=== PATIENT | male | born 1980 | race Hispanic/Latino ===

== ENCOUNTER 2017-01-28 06:45 | Inpatient (IN) | payer OTHER ==
[2017-01-28] VITALS (9 sets, daily range): BP systolic 88–146; BP diastolic 47–84; PULSE 81–134; RESP 16–26; O2SAT 93–100
[~2017-01-28] VITALS: Ht 175.3 cm; Wt 135.9 kg
[~2017-01-28 06:45] MED LIST: AMOX500T2 PO; HYDR-4150 PO; HYDR-656 PO; METH750T3 PO; PRED50TA PO
[2017-01-28] MEDS ORDERED: 0.9% Sodium Chloride 1,000 ML IV ONE ×3 (07:05→08:50)
--- NOTE | 2017-01-28 07:05 | ED.REPORT ---
[facility] Illness Date of Service January 28, 2017 ED Provider: Donis Wilkinson MD The patient is a 36 year old male who presents to the ED due to an increasingly severe cough for the past 5 days. Associated symptoms include "rattling" in his chest, trouble breathing, inability to sleep, fatigue, malaise, shaking, diaphoresis, chills, and fever. Pt went to the doctor at the time of onset and was given antibiotics and an inhaler. The last dose of antibiotics was finished yesterday. He took 4 days off work but his symptoms have only gotten worse. Pt denies rash, hx of asthma, and has never experienced symptoms like this before. No one else in his family is ill. Nursing Notes Stated Complaint: COLD SYMPTOMS Chief Complaint: FLU/Cold Symptoms Nursing Notes Reviewed: Yes (App[employer], [employer] not reconciled) Allergies: Coded Allergies: No Known Allergies (Verified Allergy, Unknown, 04/14/15) Scheduled Amoxicillin (Amoxicillin) 500 Mg Tablet 1,000 MG PO Q12 Ipratropium [place] (Atrovent HFA) 200 Puff/12.9 Gm Inhaler 2 PUFF INH BID Prednisone (PredniSONE) 20 Mg Tablet 20 MG PO DAILY Scheduled PRN Benzonatate (Benzonatate) 200 Mg Capsule 200 MG PO PRN For Cough Methocarbamol (Methocarbamol) 750 Mg Tablet 1,500 MG PO Q12 PRN PRN For Spasm hydrOXYzine Hcl (HydrOXYzine Hcl) 25 Mg Tablet 25-50 MG PO HS PRN PRN For Pain General Time Seen by Provider: 07:30 Chief Complaint 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 Darian Nelson Past Medical History denies Past Surgical History none reported Smoking History Never Smoker Social History Alcohol Use: 1-3 per week Drug Use: Denies drug use Other Social History: Good social support, , Local resident Occupation unemployed Ambulatory Status Independent Review of Systems Constitutional: Reports: Chills, Fatigue, Fever, Malaise Respiratory: Reports: Non-productive cough, Shortness of breath, Wheezing GI: Denies: Abdominal pain, Diarrhea, Nausea, Vomiting Complete sys rev & neg: except as marked. Skin: Reports Diaphoresis Physical Exam Initial Vital Signs Vital Signs (First) Date Time Temp Pulse Resp B/P Pulse Ox O2 Delivery O2 Flow Rate FiO2 01/28/17 06:50 39.5 134 26 137/77 96 Room Air Initial VS: Reviewed, Vital signs abnormal General/Constitutional: Awake, Cooperative fatigued diaphoretic moderately ill Neck: Supple, Full range of motion Respiratory / Chest: No respiratory distress tachypneic not dyspneic uncomfortable cough Cardiovascular: Heart rate NL, Regular rhythm, Heart sounds NL Skin: No rash, Warm Neurologic: Oriented X3, Speech NL, No motor deficits Head / Eyes: Normocephalic, PERRL, EOMI Abdomen: Soft, Non-tender Upper Extremity / MS: Atraumatic, Full range of motion, No deformity Lower Extremity / Pelvis / MS: Atraumatic, Full range of motion, No deformity Interpretation & Diagnostics Lab Results Interpretation Result Diagram: 01/28/17 0715 01/28/17 0715 Test 01/28/17 07:15 White Blood Count 15.1th/mm3 (3.8-10.1) Red Blood Count 5.11mil/mm3 (4.40-5.80) Hemoglobin 16.1g/dL (13.8-17.2) Hematocrit 45.8% (41.0-50.0) Mean Corpuscular Volume 89.6fL (81-100) Mean Corpuscular Hemoglobin 31.5pg (27.0-35.0) Mean Corpuscular Hemoglobin Concent 35.2% (32.0-37.0) Red Cell Distribution Width 13.2% (12.3-15.4) Platelet Count 220bil/L (150-400) Neutrophils (%) (Auto) 85.0% (40-74) Lymphocytes (%) (Auto) 6.9% (14-46) Monocytes (%) (Auto) 7.3% (4-12) Eosinophils (%) (Auto) 0.1% (0-5) Basophils (%) (Auto) 0.1% (0-3) Sodium Level 137mEq/L (134-144) Potassium Level 3.7mEq/L (3.5-5.2) Chloride Level 100mEq/L (97-108) Carbon Dioxide Level 22mmol/L (18-29) Blood Urea Nitrogen 14mg/dL (6-20) Creatinine 0.93mg/dL (0.76-1.27) Estimat Glomerular Filtration Rate 99mL/min (>59) Glucose Level 143mg/dL (60-99) Lactic Acid Level 2.0mmol/L (0.4-2.0) Calcium Level 9.2mg/dL (8.5-10.1) Total Bilirubin 1.0mg/dL (0.0-1.2) Aspartate Amino Transf (AST/SGOT) 29U/L (0-50) Alanine Aminotransferase (ALT/SGPT) 72U/L (0-44) Alkaline Phosphatase 91U/L (25-150) Total Protein 7.3g/dL (6.4-8.4) Albumin 4.1g/dL (3.4-5.0) Lab Results Interpretation: CBC positive leukocytosis CMP normal Lactic acid 2 Blood culture 2 pending Influenza negative X-Ray Chest Interpretation Chest Xray Interpretation: IMPRESSION: Mild or early pneumonia retrocardiac left lower lobe. Dictated by: Paco Do M.D. on 01/28/2017 at 8:19 Approved by: Paco Do M.D. on 01/28/2017 at 8:20 View: Portable Interpretation / Wet Read by: Interpret - Radiologist Re-Evaluation & [facility] Med Decision/Clinical Course This is a 36-year-old healthy male who has been seen twice in the past several days with increasing cough, now with fevers, chills, body aches and feeling lousy. He was started on Augmentin for possible sinus infection, but symptoms persisted and he was seen a second time on the clinic, and Tessalon Perles and albuterol inhaler were added, he now returns with increasing "noises in the chest, unable to sleep, fevers, chills, body aches and just feels miserable. On exam the patient is diabetic, febrile, tachycardic, tachypneic-but not hypoxic or hypotensive. He appears mildly ill. He does not appear in extremis. Lungs are clear without overt bronchospasm or rhonchi on my exam. He is tachycardic. He has no findings or risk factors for venous thromboembolism, and has no prior history of cardiopulmonary disease. He is a nonsmoker. A chest x-ray is read as suspicious for developing pneumonia, certainly fits the clinical presentation. Blood work is notable for leukocytosis, but is otherwise normal. Blood cultures are pending. The patient received Tylenol, ibuprofen, IV fluids, and was started on ceftriaxone and Zithromax for a community acquired pneumonia. The patient did have a brief single episode of hypertension of blood pressure 88, responded to fluid bolusing. He became diaphoretic as his fever broke. The patient is presenting with a sepsis syndrome and pneumonia while on Augmentin, the plan is admission. Gas with the admitting hospitalist. The patient's improved at time of reevaluation Source of Hx: Old records Re-Evaluation/Progress : Time of Eval: 08:50 Re-Evaluation/Progress Note: Informed pt of diagnosis and need for admission. Pt understands and agrees with plan. All questions addressed. Consultation : Referral / Consult Name: Dejuan Chow MD Consulted With: Neurology Call Returned at: 09:07 Note: Case discussed. Differential Diagnosis: Positive: Pneumonia, Negative: Allergic rhinitis, Appendicitis, Diabetes/DKA, Gastroenteritis Counseled Regarding: Diagnosis, Lab results, Need for admission Patient Discharge & Departure Impression: Primary Impression: Pneumonia Pneumonia type: due to unspecified organism Laterality: unspecified laterality Lung location: unspecified part of lung Qualified Code: J18.9 - Pneumonia, unspecified organism Additional Impression: Sepsis Sepsis type: sepsis due to unspecified organism Qualified Code: A41.9 - Sepsis, unspecified organism Disposition: ADMITTED TO HOSPITAL Discharge Condition All VS Reviewed: Yes Condition: Stable Referrals: Darian Nelson MD (PCP) Crit Care Except Billable Proc Time Spent: 30-74 minutes Services Performed: Patient management by me, Time spent at bedside, Reviewing test results, Reviewing imaging, Discussing patient care, Documentation in record, Time with fam/surrogate, Other Scribe Attestation Portion of this note were transcribed by Anabela Jean. I, Dr. Wilkinson, personally performed the history, physical exam, and medical decision-making: I reviewed and confirmed the accuracy for the information in the transcribed note. Signed by: juve Vale, 01/28/17 0900 copies to: Darian Nelson MD, Matthew F MD January 28, 2017 07:05 Anabela Jean January 28, 2017 07:36
[2017-01-28 07:25] LABS: BASOPHILS % (AUTO) 0.1 % (0-3); EOSINOPHILS % (AUTO) 0.1 % (0-5); MONOCYTES % (AUTO) 7.3 % (4-12); Mean Corpuscular Hemoglobin 31.5 pg (27.0-35.0); Mean Corpuscular Volume 89.6 fL (81-100); Platelet Count 220 bil/L (150-400)
[2017-01-28] MEDS ORDERED: HYDROmorphone 0.5 mg/0.5 mL iSecure Syringe IVPUSH PRN (07:40)
[2017-01-28] MEDS ORDERED: Ondansetron 2 mg/mL 2 mL Inj IVPUSH ONE (07:40)
--- NOTE | 2017-01-28 08:21 | DRSVH ---
PROCEDURE: X-RAY CHEST ONE VIEW, PORTABLE ([id number]) INDICATIONS: cough, fever TECHNIQUE: One view of the chest was acquired. COMPARISON: [facility], CR, CHEST 2VW, 01/07/2015, 12:49. FINDINGS: Surgical changes and devices: None. Lungs and pleura: No pleural effusions or pneumothorax. Lungs are clear on the right but demonstrat e irregular indistinct margination at the retrocardiac left lung base consistent with mild or early p neumonia in that area. Mediastinum: Mediastinal contours appear normal. Heart size is normal. Bones and chest wall: No suspicious bony lesions. Overlying soft tissues appear unremarkable. IMPRESSION: Mild or early pneumonia retrocardiac left lower lobe. Dictated by: Paco Do M.D. on 01/28/2017 at 8:19 Approved by: Paco Do M.D. on 01/28/2017 at 8:20
[2017-01-28] MEDS ORDERED: cefTRIAXone Inj 2,000 MG in Dextrose 5% Minibag Plus 50 ML IV ONE (08:35)
[2017-01-28] MEDS ORDERED: Azithromycin Inj 500 MG in Dextrose 5% w/Vial Mate 250 ML IV ONE (08:35)
[2017-01-28] MEDS ORDERED: ATRINH INH (08:37)
[2017-01-28] MEDS ORDERED: BENZ200C44 PO (08:37)
[2017-01-28] MEDS ORDERED: PRE20 PO (08:37)
[2017-01-28] MEDS: 0.9% Sodium Chloride 1,000 ML IV SCH ×3 (09:07→19:54)
[2017-01-28] MEDS ORDERED: Polyethylene Glycol (PEG) 17 Gm Powder PO PRN (09:10)
[2017-01-28] MEDS ORDERED: Alum-Mag Hydrox-Simeth 30 mL Suspension PO PRN (09:10)
[2017-01-28] MEDS: cefTRIAXone Inj 1,000 MG in Dextrose 5% Minibag Plus 50 ML IV SCH (09:10)
[2017-01-28] MEDS ORDERED: Ondansetron 2 mg/mL 2 mL Inj IVPUSH PRN (09:10)
[2017-01-28] MEDS: Heparin 5,000 Unit/mL Inj SUBQ SCH ×2 (11:51→18:36)
--- NOTE | 2017-01-28 13:08 | PCM.HPMED ---
Subjective Date of Service January 28, 2017 Primary Provider: Admitting Physician: German Villagran MD Primary Care Physician: Darian Nelson MD Attending Physician: German Villagran MD Admit Status: From the Emergency Department, Full Admit, [facility] Telemetry Chief Complaint: Cough, fever, shortness of breath. History of Present Illness: This is a 36-year-old gentleman who presents to the ER today with a probable pneumonia. He has been ill since last . He initially had rhinorrhea and a sore throat as well as a cough. He was seen in urgent care last and given Augmentin. Because of persistent worsening symptoms he was seen in [facility] care 2 days ago where they added albuterol MDI and prednisone. The patient has had ongoing rhinorrhea cough and some dyspnea. Overnight he developed shaking chills. He became diffusely weak and can barely get out of bed. This was performed to the ER. There is vital signs included a temperature of 39.5. Heart rate 134 respiratory rate was 26 with saturations at room air. His initial systolic blood pressure was normal but then dipped to 88. He was given 2 L crystalloid and improved. His lactic acid was 2.0. His white count was 15. His x-ray revealed a left lower lobe infiltrate. A respiratory PCR was pending. The patient denies any chest pain. He has had anorexia and some diarrhea. No nausea, spent ill. He has no history of pneumonia. 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 Review of Systems: No anxiety or depression. No cold or heat intolerance. All systems reviewed and otherwise negative except as noted on history of present illness Allergies Coded Allergies: No Known Allergies (Verified Allergy, Unknown, 04/14/15) Home Medications Augmentin 875 125 twice a day, albuterol MDI when necessary, and is on 40 mg daily. 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 Hx Alcohol Use: No Hx Substance Use: No Hx Tobacco Use: No Smoking Status: Never Smoker Living Arrangement: with Family Exam Vital Signs Vital Sign - Last Date Time Temp Pulse Resp B/P Pulse Ox O2 Delivery O2 Flow Rate FiO2 01/28/17 10:55 81 01/28/17 10:44 37.0 20 100/52 97 Room Air Exam Oriented 3. No distress. Fluent speech. Normal affect. Normal skull. Normal nose and ears. Anicteric sclera, symmetric pupils Oropharynx is unremarkable, no facial droop. Neck is supple, normal thyroid. No adenopathy. Lungs are clear, normal effort rate. Decreased breath sounds in the right base. Heart is regular without murmur gallop or rub. Abdomen soft, nondistended or tender. Extremities are free of pedal edema. Good radial and pedal pulses. Skin is free of rash, lesions. No petechiae or ecchymosis. Joints are grossly normal. Cranial nerves are grossly normal. Motor strength is normal in all extremities. Normal muscular tone. Lab and Diagnostics Result Diagram: 01/28/1771401/28/17714 X-Rays, CTs and MRIs FINDINGS: Surgical changes and devices: None. Lungs and pleura: No pleural effusions or pneumothorax. Lungs are clear on the right but demonstrate irregular indistinct margination at the retrocardiac left lung base consistent with mild or early pneumonia in that area. Mediastinum: Mediastinal contours appear normal. Heart size is normal. Bones and chest wall: No suspicious bony lesions. Overlying soft tissues appear unremarkable. IMPRESSION: Mild or early pneumonia retrocardiac left lower lobe. Dictated by: Paco Do M.D. on 01/28/2017 at 8:19 Approved by: Paco Do M.D. on 01/28/2017 at 8:20 Assessment & Plan Community-acquired pneumonia, POA. The plan is to continue with ceftriaxone and azithromycin, blood cultures, sputum culture. Also add a pneumococcal antigen Sepsis, POA. Source is pneumonia. The patient does have hypotension with fever leukocytosis as well as tachycardia. He also has a lactic acidosis. We will fluid resuscitate and check the lactic acid 2 hours. The goal is to sustain blood pressure map over 65 and normalized lactic acidosis Metabolic acidosis, POA. Plan is as above with IV fluid resuscitation. Volume depletion, POA. Plan is resuscitation. Patient is for cessation Inpatient status with anticipated length of stay of over 2 nights Pain Evaluation: Adequate Pain Control Resuscitation Status: CPR: Attempt Resuscitation Time spent 40 minutes German Villagran MD January 28, 2017 13:08
[2017-01-28] MEDS ORDERED: hydrOXYzine Pamoate 25 mg Capsule PO PRN (18:30)
[2017-01-29] VITALS (10 sets, daily range): BP systolic 119–139; BP diastolic 71–83; PULSE 63–121; RESP 16–20; O2SAT 93–98
[2017-01-29] MEDS: Heparin 5,000 Unit/mL Inj SUBQ SCH ×4 (00:19→17:03)
[2017-01-29] MEDS: 0.9% Sodium Chloride 1,000 ML IV SCH ×2 (02:23→11:47)
[2017-01-29 03:05] LABS: BASOPHILS % (AUTO) 0.1 % (0-3); EOSINOPHILS % (AUTO) 0.3 % (0-5); MONOCYTES % (AUTO) 5.4 % (4-12); Mean Corpuscular Hemoglobin 31.1 pg (27.0-35.0); Mean Corpuscular Volume 91.1 fL (81-100); NEUTROPHILS % (AUTO) 79.1 % (40-74); Platelet Count 179 bil/L (150-400)
[2017-01-29] MEDS: Azithromycin Inj 500 MG in Dextrose 5% w/Vial Mate 250 ML IV SCH (08:30)
[2017-01-29] MEDS: cefTRIAXone Inj 1,000 MG in Dextrose 5% Minibag Plus 50 ML IV SCH (09:41)
[2017-01-29] MEDS: Albuterol 1.25 mg/3 mL Inhalation Solution NEB SCH ×2 (14:31→19:19)
--- NOTE | 2017-01-29 16:00 | PCM.PNMED ---
Subjective Date of Service Jan 29, 2017 Subjective Follow-up follow-up community-acquired pneumonia, sepsis. Patient is feeling better today but still short of breath and feeling ill. Chest pain, no fever no chills Exam Vital Signs Vital Sign - Last Date Time Temp Pulse Resp B/P Pulse Ox O2 Delivery O2 Flow Rate FiO2 01/29/17 14:30 71 18 95 Room Air 01/29/17 12:33 36.7 139/83 Intake and Output 01/28/17 01/28/17 01/29/17 Cumulative From/Thru 15:00 23:00 07:00 01/28/17 06:50 - 01/29/17 06:25 Intake Total 3000 ml 700 ml 1814 ml 5514 ml Output Total 350 ml 300 ml 650 ml Balance 3000 ml 350 ml 1514 ml 4864 ml Intake Oral 700 ml 300 ml 1000 ml IV Total 3000 ml 1514 ml 4514 ml Output Urine Total 350 ml 300 ml 650 ml Exam Gen : Obese male , in bed comfortably. NAD HEENT : Sclerae anicteric Neck: Supple, no JVD Chest: Normal respiratory effort Lung: Clear bilaterally with no wheezing Heart: S1-S2 without murmur or gallop Abdomen: Soft non tender non distended, obese: Extremity: No edema, and, no cyanosis IVs and Medications Medications Reviewed: Medications were reviewed in detail Lab and Diagnostics Result Diagram: 01/29/17 0240 01/29/17 0240 X-Rays, CTs and MRIs FINDINGS: Surgical changes and devices: None. Lungs and pleura: No pleural effusions or pneumothorax. Lungs are clear on the right but demonstrate irregular indistinct margination at the retrocardiac left lung base consistent with mild or early pneumonia in that area. Mediastinum: Mediastinal contours appear normal. Heart size is normal. Bones and chest wall: No suspicious bony lesions. Overlying soft tissues appear unremarkable. IMPRESSION: Mild or early pneumonia retrocardiac left lower lobe. Dictated by: Paco Do M.D. on 01/28/2017 at 8:19 Approved by: Paco Do M.D. on 01/28/2017 at 8:20 Assessment & Plan 1. Community-acquired pneumonia, POA. Continue with ceftriaxone and azithromycin Add albuterol inhaler Q6h FOR sob and wheezing. 2. Obesity : Weight loss discussed 3. Suspected ROYCE : Sleep study as outpatient 4. Sepsis, POA. Source is pneumonia. Improved. IV fluid discontinued 5. Metabolic acidosis, POA. Resolved Patient is doig better today but remained clinically ill plan of care as above. Discharge anticipated within 24-48 hours Resuscitation Status: CPR: Attempt Resuscitation Time spent 35 minutes Keith Yoo MD Jan 29, 2017 16:00
[2017-01-30] MEDS: Heparin 5,000 Unit/mL Inj SUBQ SCH ×2 (00:55→08:39)
[2017-01-30 02:44] VITALS: BP 141/87; PULSE 65; RESP 20; O2SAT 93
[2017-01-30 02:56] LABS: BASOPHILS % (AUTO) 0 % (0-3); MONOCYTES % (AUTO) 7.1 % (4-12); Mean Corpuscular Hemoglobin 31.1 pg (27.0-35.0); Mean Corpuscular Volume 91.8 fL (81-100); NEUTROPHILS % (AUTO) 55.2 % (40-74); Platelet Count 182 bil/L (150-400)
[2017-01-30 05:13] VITALS: PULSE 67
[2017-01-30 07:51] VITALS: PULSE 78
[2017-01-30 08:26] VITALS: BP 125/79; PULSE 89; RESP 20; O2SAT 93
[2017-01-30] MEDS: Albuterol 1.25 mg/3 mL Inhalation Solution NEB SCH (08:30)
[2017-01-30] MEDS: Azithromycin Inj 500 MG in Dextrose 5% w/Vial Mate 250 ML IV SCH (08:39)
--- NOTE | 2017-01-30 08:53 | PCM.DIMED ---
Discharge Instructions Date of Service Jan 30, 2017 Dates of Hospitalization January 28, 2017 at 09:43 Discharge Diagnosis Discharge Diagnosis 1. Community Acquired Pneumonia 2. Obesity 3. SIRS 4. Suspected ROYCE Diet Discharge Diet: No restrictions, Other (Low calories diet ) Activity Discharge Activity: No restrictions Call your provider Call your provider for: Fever or Chills, Shortness of breath Patient Instructions Follow-up plan Sleep study as outpatient Follow-up with PCP in: 1 week (Primary Care doctor to [facility] for sleep study ) Keith Yoo MD Jan 30, 2017 08:53
[2017-01-30] MEDS ORDERED: PRE20 PO (08:58)
[2017-01-30] MEDS ORDERED: AZIT500T PO (08:58)
[2017-01-30] MEDS ORDERED: PRE10 PO (08:58)
[2017-01-30] MEDS ORDERED: PRD5T PO (08:58)
[2017-01-30] MEDS: cefTRIAXone Inj 1,000 MG in Dextrose 5% Minibag Plus 50 ML IV SCH (10:05)
--- NOTE | 2017-01-30 15:56 | PCM.DC.MED ---
Discharge Summary Date of Service Jan 30, 2017 Dates of Hospitalization Date of Hospital Admission January 28, 2017 at 09:43 Date of Discharge: Jan 30, 2017 Providers: Admitting Physician: German Villagran MD Primary Care Physician: Darian Nelson MD Attending Physician: German Villagran MD Diagnosis at Time of Discharge Diagnosis at Time of Discharge 1. Community Acquired Pneumonia 2. Obesity 3. SIRS 4. Suspected ROYCE Consultations None Procedures XRay, CTs & MRIs FINDINGS: Surgical changes and devices: None. Lungs and pleura: No pleural effusions or pneumothorax. Lungs are clear on the right but demonstrate irregular indistinct margination at the retrocardiac left lung base consistent with mild or early pneumonia in that area. Mediastinum: Mediastinal contours appear normal. Heart size is normal. Bones and chest wall: No suspicious bony lesions. Overlying soft tissues appear unremarkable. IMPRESSION: Mild or early pneumonia retrocardiac left lower lobe. Dictated by: Paco Do M.D. on 01/28/2017 at 8:19 Approved by: Paco Do M.D. on 01/28/2017 at 8:20 Brief History This is a 36-year-old gentleman who presents to the ER today with a probable pneumonia. He has been ill since last . He initially had rhinorrhea and a sore throat as well as a cough. He was seen in urgent care last and given Augmentin. Because of persistent worsening symptoms [facility] was [facility] where they added albuterol MDI and prednisone. The patient has had ongoing rhinorrhea cough and some dyspnea. Overnight he developed shaking chills. He became diffusely weak and can barely get out of bed. This was performed to the ER. There is vital signs included a temperature of 39.5. Heart rate 134 respiratory rate was 26 with saturations at room air. His initial systolic blood pressure was normal but then dipped to 88. He was given 2 L crystalloid and improved. His lactic acid was 2.0. His white count was 15. His x-ray revealed a left lower lobe infiltrate. A respiratory PCR was pending. The patient denies any chest pain. He has had anorexia and some diarrhea. No nausea, spent ill. He has no history of pneumonia. 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 Hospital Course 1. Community-acquired pneumonia, POA. Treated with ceftriaxone , azithromycin and PO steroid ( Prednisone) Add albuterol inhaler Q6h FOR sob and wheezing. 2. Obesity : Weight loss discussed 3. Suspected ROYCE : Sleep study as outpatient 4. Sepsis, POA. Source is pneumonia. Improved. 5. Metabolic acidosis, POA. Resolved Improved and discharged home in stable condition. Patient seen and examined on discharge date Exam Vital Signs (Last) Date Time Temp Pulse Resp B/P Pulse Ox O2 Delivery O2 Flow Rate FiO2 01/30/17 08:26 36.6 89 20 125/79 93 Room Air Exam Gen : NAD. Sitting in chair comfortably HEENT : Sclerae anicteric Neck: Supple, no JVD, trachea is midline Chest: Normal respiratory effort Lung: Clear bilaterally with no wheezing, no crackles Heart: S1-S2 without murmur or gallop Abdomen: Soft non tender non distended Extremity: No edema, and, no cyanosis Neuro: Grossly intact Test 01/28/17 10:25 01/28/17 14:00 01/29/17 02:40 01/30/17 02:37 Lactic Acid Level 1.3mmol/L (0.4-2.0) Procalcitonin 0.52ng/mL (0.00-0.08) Hold Urine Received (Received) Total Bilirubin 1.0mg/dL (0.0-1.2) Aspartate Amino Transf (AST/SGOT) 22U/L (0-50) Alanine Aminotransferase (ALT/SGPT) 53U/L (0-44) Alkaline Phosphatase 80U/L (25-150) Total Protein 5.9g/dL (6.4-8.4) Albumin 3.5g/dL (3.4-5.0) White Blood Count 6.0th/mm3 (3.8-10.1) Red Blood Count 4.50mil/mm3 (4.40-5.80) Hemoglobin 14.0g/dL (13.8-17.2) Hematocrit 41.3% (41.0-50.0) Mean Corpuscular Volume 91.8fL (81-100) Mean Corpuscular Hemoglobin 31.1pg (27.0-35.0) Mean Corpuscular Hemoglobin Concent 33.9% (32.0-37.0) Red Cell Distribution Width 13.4% (12.3-15.4) Platelet Count 182bil/L (150-400) Neutrophils (%) (Auto) 55.2% (40-74) Lymphocytes (%) (Auto) 31.5% (14-46) Monocytes (%) (Auto) 7.1% (4-12) Eosinophils (%) (Auto) 6.0% (0-5) Basophils (%) (Auto) 0% (0-3) Sodium Level 137mEq/L (134-144) Potassium Level 4.0mEq/L (3.5-5.2) Chloride Level 101mEq/L (97-108) Carbon Dioxide Level 23mmol/L (18-29) Blood Urea Nitrogen 9mg/dL (6-20) Creatinine 0.80mg/dL (0.76-1.27) Estimat Glomerular Filtration Rate 118mL/min (>59) Glucose Level 117mg/dL (60-99) Calcium Level 8.9mg/dL (8.5-10.1) Discharge Medications Discharge Medications Azithromycin (Zithromax) 500 Mg Tablet 500 MG PO DAILY Prescribed by: COLT YOO MD Ipratropium [place] (Atrovent HFA) 200 Puff/12.9 Gm Inhaler 2 PUFF INH BID ( Reported) Prednisone (PredniSONE) 20 Mg Tablet 20 MG PO DAILY Prescribed by: COLT YOO MD Prednisone (PredniSONE) 10 Mg Tablet 10 MG PO DAILY Prescribed by: COLT YOO MD Prednisone (PredniSONE) 5 Mg Tab 5 MG PO DAILY Prescribed by: COLT YOO MD As needed Benzonatate (Benzonatate) 200 Mg Capsule 200 MG PO PRN For Cough (Reported) Methocarbamol (Methocarbamol) 750 Mg Tablet 1,500 MG PO Q12 PRN PRN For Spasm ( Reported) hydrOXYzine Hcl (HydrOXYzine Hcl) 25 Mg Tablet 25-50 MG PO HS PRN PRN For Pain ( Reported) Followup Plan Disposition: Home Follow-up plan Sleep study as outpatient Discharge Diet: No restrictions, Other (Low calories diet ) Discharge Activity: No restrictions Follow-up with PCP in: 1 week (Primary Care doctor to [facility] for sleep study ) Time spent 35 minutes Colt Yoo MD Jan 30, 2017 15:56
== END 2017-01-30 12:15 | disposition home or self-care (01) | DRG 720 ==
LOC: SED 06:45 → PCC 09:43
PROVIDERS: ADMIT Hospitalist; ATTEND Hospitalist
DX: A41.9 Sepsis, unspecified organism (principal); J18.9 Pneumonia, unspecified organism; E87.2 Acidosis; Z68.41 Body mass index [BMI] 40.0-44.9, adult; E66.9 Obesity, unspecified